=== PATIENT | female | born 1980 | race American Indian/Alaskan Native ===

== ENCOUNTER 2017-02-03 14:03 | Outpatient (CLI) | payer BC ==
--- NOTE | 2017-02-03 15:27 | Cat Scan Report ---
CT HEAD WITHOUT CONTRAST: 02/03/17 14:03:00 CLINICAL: Pseudotumor cerebri. TECHNIQUE: 2.5-mm noncontrast scans. COMPARISON:12/24/15 FINDINGS: The ventricles are normal size with a [employer] shunt tip in the anterior right lateral ventricle. Bilateral benign basal ganglia calcifications. No other abnormal density. No mass or mass effect. No hemorrhage, edema or extra-axial collection. The sinuses are clear. Normal orbits and soft tissues. The calvarium and skull base are intact. IMPRESSION: Negative study with a [employer] shunt.
== END 2017-02-03 14:04 | disposition home or self-care (01) ==
LOC: SPVIMAG 14:03
PROVIDERS: ATTEND Neurological Surgery
DX: G93.2 Benign intracranial hypertension (principal); G23.8 Other specified degenerative diseases of basal ganglia; F32.9 Major depressive disorder, single episode, unspecified; F41.9 Anxiety disorder, unspecified
CPT/HCPCS: 70450

== ENCOUNTER 2018-10-07 16:40 | Emergency (ER) | payer BC, OTHER ==
[2018-10-07] MEDS ORDERED: KEPPRA 1,000 MG/NS 0.75% 100ML 1,000 MG/100 ML BAG IV ONE (17:00)
--- NOTE | 2018-10-07 17:03 | Emergency Department Report ---
HPI - General Chief Complaint: Seizure Time Seen by Provider: 10/07/18 16:43 - HPI HPI: This is a 38-year-old female presents to the emergency department via EMS from a grocery store after a witnessed seizure. The patient's and mother saw her seizing on the floor for about 2-3 minutes followed by postictal period. Patient is currently awake and alert. She does have a seizure history for which she takes gabapentin, Vimpat and Keppra and says she takes compliantly. Her neurologist is Dr. Harris. She says she last had a seizure a few weeks ago and was evaluated at [facility] at that time. Currently she complains of some headache and dizziness. ED Past Medical Hx - Past Medical History Previous Medical History?: Yes Hx Seizures: Yes - Social History Smoking Status: Never Smoker Substance Use Type: None - Medications Home Medications: Home Medications Medication Instructions Recorded Confirmed Last Taken Type HYDROcodone/ACETAMINOPHEN 1 tab PO PRN 11/07/15 11/07/15 11/05/15 History [Hydrocodon-Acetaminophen 5-325] Ketorolac [Toradol] 10 mg PO Q4HR PRN 11/07/15 11/07/15 11/03/15 History Nortriptyline HCl 25 mg PO DAILY 11/07/15 11/07/15 11/06/15 21:00 History acetaZOLAMIDE [Acetazolamide] 500 mg PO DAILY 11/07/15 11/07/15 11/06/15 History ED Review of Systems ROS: Stated complaint: SEIZURE Other details as noted in HPI Comment: All other systems reviewed and negative Constitutional: denies: chills, fever Eyes: denies: eye pain, vision change ENT: denies: ear pain, throat pain Respiratory: denies: cough, shortness of breath Cardiovascular: denies: chest pain, palpitations Gastrointestinal: denies: abdominal pain, vomiting Genitourinary: denies: dysuria, discharge Musculoskeletal: denies: back pain, arthralgia Skin: denies: rash, lesions Neurological: headache, other (seizure, dizziness) Physical Exam - Physical Exam Vital Signs: Vital Signs 10/07/18 16:48 Temperature 98 F Pulse Rate 71 Respiratory 13 Rate Blood Pressure 117/70 O2 Sat by Pulse 100 Oximetry Physical Exam: GENERAL: The patient is well-developed well-nourished. HEENT: Normocephalic. Atraumatic. Patient has moist mucous membranes. EYES: Extraocular motions are intact. Pupils are equal and reactive to light bilaterally. No nystagmus. NECK: Supple. Trachea is midline. CHEST/LUNGS: Clear to auscultation. There is no respiratory distress noted. HEART/CARDIOVASCULAR: Regular. There is no tachycardia. There is no obvious murmur. ABDOMEN: There is no abdominal distention. SKIN: Skin is warm and dry. NEURO: The patient is awake, alert, and oriented. The patient is cooperative. The patient has no focal neurologic deficits. The patient has normal speech. Cranial nerves II through XII grossly intact. No pronator drift. No dysmetria. No facial asymmetry. MUSCULOSKELETAL: There is no tenderness or deformity. There is no limitation range of motion. There is no evidence of acute injury. ED Course Vital Signs 10/07/18 16:48 Temperature 98 F Pulse Rate 71 Respiratory 13 Rate Blood Pressure 117/70 O2 Sat by Pulse 100 Oximetry ED Medical Decision Making - Lab Data Result diagrams: 10/07/18 16:58 10/07/18 16:58 - EKG Data -: EKG Interpreted by Vt EKG shows normal: sinus rhythm, axis, intervals (prolonged MN interval), QRS complexes (low voltage), ST-T waves Rate: normal - EKG Data When compared to previous EKG there are: previous EKG unavailable Interpretation: other (sinus, low voltage, prolonged MN interval. No STEMI) - Medical Decision Making This patient presents to the emergency department after having a seizure just prior to arrival. She does have a seizure history. Since being in the emergency department, the patient has been awake, alert, oriented and appropriate. Her labs have been unremarkable but may show some mild signs of dehydration. She was given 2 L of IV fluid resuscitation. She was given a [place] for her headache. On examination she has no focal, motor or sensory deficits in her cranial nerves are intact. She was reevaluated multiple times for multiple hours and she says she is feeling greatly improved. Her headache is resolved, as has the dizziness, and the patient is currently asymptomatic. Vital signs stable throughout her ED course. Prior to discharge, the patient was seen ambulatory in the emergency department and both appears and feels stab le. For these reasons, I did not feel that the patient required CT imaging of the head at this time. She has good follow-up with neurology. She was instructed to continue taking her antiepileptic medication. She will follow up with her primary care physician and neurologist and return to the year with any worsening of her symptoms or any acute distress. - Differential Diagnosis epilepsy, dysrhythmia, electrolyte abnormalities Critical Care Time: No Critical care attestation.: If time is entered above; I have spent that time in minutes in the direct care of this critically ill patient, excluding procedure time. ED Disposition Clinical Impression: Seizure disorder Disposition: DC- TO HOME OR SELFCARE Is pt being admited?: No Condition: Stable Instructions: Recurrent Seizures Adult (ED) Additional Instructions: Please follow up with your primary care physician and your neurologist, Dr Wheeler. Continue taking your seizure medications. Return to the emergency department with any further seizure like activity, worsening of your symptoms or any acute distress. Referrals: MACARIO WHEELER MD [Referring] - 3-5 Days Time of Disposition: 19:48
[2018-10-07 17:43] LABS: Hematocrit 37.3 % (30.3-42.9); Mean Corpuscular HGB Conc 32 % (30-34); Mean Corpuscular Volume 87 fl (79-97); Platelet Count 202 K/mm3 (140-440); Red Blood Count 4.28 M/mm3 (3.65-5.03); Red Cell Distribution Width 13.7 % (13.2-15.2)
[2018-10-07 18:01] LABS: BUN/Creatinine Ratio 20; Blood Urea Nitrogen 12 mg/dL (7-17); Calcium 8.8 mg/dL (8.4-10.2); Hemolysis Index 8
[2018-10-07] MEDS ORDERED: NORCO 5/325 PO ONE (18:05)
[2018-10-07] MEDS ORDERED: NACL 0.9% 1000 ML 1,000 ML IV ONE (18:55)
[2018-10-07 19:18] VITALS: BP 108/64
== END 2018-10-07 19:55 | disposition home or self-care (01) ==
LOC: ED 16:40
DX: G40.909 Epilepsy, unspecified, not intractable, without status epilepticus (principal)
CPT/HCPCS: 36415; 80048; 82550; 82962; 84703; 85027; 93005; 93010; 96361; 96365; 99284; G0480; J1953; J7030; 80320